=== PATIENT | female | born 1955 | race African-American/Black ===

== ENCOUNTER 2017-06-06 11:50 | Emergency (ER) | payer OTHER ==
[~2017-06-06] VITALS: Ht 157.5 cm; Wt 72.6 kg
[2017-06-06] MEDS ORDERED: DOXYCYCLINE 10100 MG PO (14:21)
[2017-06-06] MEDS ORDERED: OXYCODONE HCL 55 MG PO (14:29)
== END 2017-06-06 14:38 | disposition home or self-care (01) ==
LOC: ER 11:50
DX: M79.672 Pain in left foot (principal); E11.40 Type 2 diabetes mellitus with diabetic neuropathy, unspecified; I10 Essential (primary) hypertension; F32.9 Major depressive disorder, single episode, unspecified

== ENCOUNTER 2017-06-22 17:29 | Emergency (ER) | payer OTHER ==
[~2017-06-22] VITALS: Ht 162.6 cm; Wt 97.1 kg
[~2017-06-22 17:29] MED LIST: DOXYCYCLINE 10100 MG PO; OXYCODONE HCL 55 MG PO
[2017-06-22] MEDS ORDERED: HYDROCODONE-AP1 EAC6 PO (17:59)
[2017-06-22] MEDS ORDERED: VIBRAMYCIN 100100 M2 PO (17:59)
[2017-06-22] MEDS ORDERED: LAMISIL AF133 GM TOP (17:59)
[2017-06-22] MEDS ORDERED: LAMISIL AT 1% C12 G1 TOP (17:59)
== END 2017-06-22 18:11 | disposition home or self-care (01) ==
LOC: ER 17:29
DX: B35.3 Tinea pedis (principal); B35.1 Tinea unguium; E11.40 Type 2 diabetes mellitus with diabetic neuropathy, unspecified; I10 Essential (primary) hypertension; Z88.8 Allergy status to other drugs, medicaments and biological substances